=== PATIENT | female | born 1995 | race Caucasian/White ===

== ENCOUNTER 2022-06-20 11:22 | Inpatient (IN) ==
[2022-06-20] MEDS ORDERED: *HR* Nalbuphine 10 MG/ML AMPUL IV PRN (12:06)
[2022-06-20] MEDS ORDERED: Ondansetron 4 MG/2 ML VIAL IVP PRN (12:06)
[2022-06-20] MEDS ORDERED: Famotidine 20 MG/2 ML VIAL IVP PRN (12:06)
[2022-06-20] MEDS ORDERED: Metoclopramide 10 MG/2 ML VIAL IVP PRN (12:06)
[2022-06-20] MEDS ORDERED: Lidocaine 1% 20 ML MDV INFILT PRN (12:06)
[2022-06-20] MEDS ORDERED: Naloxone 0.4 MG/ML INJ IVP PRN (12:06)
[2022-06-20] MEDS ORDERED: Azithromycin 500 MG in 0.9 % Sodium Chloride 250 ML IVPB PRN (12:06)
[2022-06-20 12:27] LABS: Basophils % 0.2 %; Eosinophils % 0.4 %; Hematocrit 35.7 % (35.3-44.9); Immature Granulocytes % 0.5 % (0-4); Lymphocytes # 1.7 K/mcL (0.6-4.6); Mean Corpuscular HGB Conc 33.6 g/dL (31.6-35.5); Mean Corpuscular Hemoglobin 30.9 pg (28.0-33.3); Mean Platelet Volume 10.5 fL (9.4-12.4); Monocytes # 1.3 K/mcL (0.0-1.3); Monocytes % 13.4 %; Neutrophils # 6.7 K/mcL (1.6-8.9); Platelet Count 239 K/mcL (140-400); Red Blood Count 3.88 M/mcL (3.82-4.97); Red Cell Distribution Width 13.3 % (11.5-14.5); Segmented Neutrophils % 68.5 %; White Blood Count 9.7 K/mcL (4.3-11.1)
[2022-06-20 13:01] LABS: Amphetamine Screen,Urine Negative ng/mL (Cutoff=1000); Barbiturate Screen,Urine Negative ng/mL (Cutoff=200); Benzodiazepines Screen,Urine Negative ng/mL (Cutoff=200); Cannabinoid Screen,Urine Negative ng/mL (Cutoff = 50); Cocaine Screen,Urine Negative ng/mL (Cutoff= 300); Creatinine,Urine 26 mg/dL; Opiate Screen,Urine Negative ng/mL (Cutoff=300); Phencyclidine Screen,Urine Negative ng/mL (Cutoff=25); Protein/Creatinine Ratio,Urine 0.19 mg/mg (0.00-0.20)
[2022-06-20 13:02] LABS: Alanine Aminotransferase 16 Units/L (7-52); Aspartate Amino Transferase 18 Units/L (13-39); BUN/Creatinine Ratio 8 (6-26); Blood Urea Nitrogen 6 mg/dL (6-20); Lactate Dehydrogenase 135 Units/L (140-271); Uric Acid 5.8 mg/dL (2.3-7.6)
[2022-06-20] MEDS ORDERED: EPHEDrine 50 MG/ML VIAL IVP PRN (13:02)
[2022-06-20] MEDS ORDERED: Epidural Premix (fent/bupiv) 110 ML EP SCH (13:15)
[2022-06-20] MEDS ORDERED: Oxytocin 30 UNIT/503 ML BAG IVC SCH (14:15)
[2022-06-20] MEDS: Ringers Solution, Lactated 1,000 ML IVC SCH ×2 (14:22→21:03)
[2022-06-21] MEDS ORDERED: Magnesium Sulfate 1 EACH PACKAGE TP PRN (08:58)
[2022-06-21] MEDS ORDERED: Benzocaine/Menthol 56 GM AEROSOL SPRAY TP PRN (08:58)
[2022-06-21] MEDS ORDERED: OXYTOCIN/RINGERS LACTATE 10 UNIT/166.6 ML BAG IVC ONE (08:58)
[2022-06-21] MEDS ORDERED: Ondansetron ODT 4 MG TAB.RAPDIS SL PRN (08:58)
[2022-06-21] MEDS ORDERED: Lanolin 7 G OINT...G. TP PRN (08:58)
[2022-06-21] MEDS ORDERED: Oxytocin 30 UNIT/503 ML BAG IVC SCH (08:58)
[2022-06-21] MEDS ORDERED: Measles/Mumps/Rubella Vacc 0.5 ML VIAL SQ PRN (08:58)
[2022-06-21] MEDS: polyethylene glycoL 3350 17 GM POWD.PACK PO SCH (09:49)
[2022-06-21] MEDS: Ibuprofen 600 MG TABLET PO SCH ×2 (09:49→18:04)
[2022-06-21] MEDS: Prenatal Vit/FA 1 EACH TABLET PO SCH (09:49)
[2022-06-21 12:11] VITALS: O2SAT 98
[2022-06-21] MEDS: Acetaminophen 325 MG TABLET PO SCH (16:35)
[2022-06-21] MEDS: *HR* HYDROcodone/Acet 5/325 mg TABLET PO PRN (18:04)
[2022-06-22] MEDS: Ibuprofen 600 MG TABLET PO SCH ×2 (00:36→07:10)
[2022-06-22] MEDS: *HR* HYDROcodone/Acet 5/325 mg TABLET PO PRN ×3 (00:36→12:31)
[2022-06-22] MEDS: Acetaminophen 325 MG TABLET PO SCH ×2 (04:25→12:31)
[2022-06-22 08:09] VITALS: BP 110/70; PULSE 83; TEMP 98
[2022-06-22] MEDS: Prenatal Vit/FA 1 EACH TABLET PO SCH (09:35)
[2022-06-22] MEDS: polyethylene glycoL 3350 17 GM POWD.PACK PO SCH (09:36)
[2022-06-22] MEDS ORDERED: Ibuprofen 600 MG TABLET PO ONE (12:00)
[2022-06-22] MEDS ORDERED: Ibuprofen 600 MG TABLET PO SCH (18:00)
== END 2022-06-22 17:05 | disposition home or self-care (01) | DRG 768 ==
LOC: 1NENULAB 11:22 → 1NENUOBS 06-21 08:56
PROVIDERS: ADMIT Obstetrics & Gynecology; ATTEND Obstetrics & Gynecology